=== PATIENT | male | born 1925 | race Caucasian/White ===

== ENCOUNTER 2016-08-06 19:54 | Emergency (ER) | payer OTHER, MEDICAID ==
[~2016-08-06] VITALS: Ht 170.2 cm; Wt 70.5 kg
[2016-08-06 20:10] LABS: BASOPHILS % (AUTO) 0.5 % (0.0-2.0); EOSINOPHILS % (AUTO) 0.9 % (1.0-6.0); HEMATOCRIT 43.1 % (41-53); HEMOGLOBIN 14.4 g/dL (13.5-17.5); LYMPHOCYTES # (AUTO) 1.4 K/uL (1.0-4.8); LYMPHOCYTES % (AUTO) 19.3 % (22.0-44.0); MEAN CORPUSCULAR HEMOGLOBIN 32.2 pg (26.0-34.0); MEAN CORPUSCULAR HGB CONC 33.4 G/dL (31.0-37.0); MEAN CORPUSCULAR VOLUME 97 fL (80-100); NEUTROPHILS # (AUTO) 4.8 K/uL (1.8-7.7); NEUTROPHILS % (AUTO) 65.3 % (40.0-70.0); PLATELET COUNT (AUTO) 158 K/uL (150-450); RED BLOOD CELL COUNT(AUTO) 4.46 MIL/uL (4.50-5.90); RED CELL DISTRIBUTION WIDTH 13.8 % (11.5-14.5); WHITE BLOOD COUNT (AUTO) 7.3 K/uL (4.5-11.0)
[2016-08-06 20:19] LABS: ANION GAP 10 mmol/L (8-16); CALCIUM, TOTAL 8.4 mg/dL (8.8-10.5); CARBON DIOXIDE 26 mmol/L (22-29); CHLORIDE 101 mmol/L (98-107); CREATININE 1.06 mg/dL (0.60-1.30); GLOMERULAR FILTR. RATE CALC > 60 mL/min (>60); POTASSIUM 4.4 mmol/L (3.5-5.1); SODIUM SERUM 137 mmol/L (136-145); UREA NITROGEN, BLOOD 16 mg/dL (7-18)
[2016-08-06] MEDS ORDERED: LISI-661 PO (20:24)
[2016-08-06] MEDS ORDERED: TRAM50TA4 PO (20:24)
[2016-08-06] MEDS ORDERED: ATOR10TA84 PO (20:24)
[2016-08-06] MEDS ORDERED: DIVA250T25 PO (20:24)
[2016-08-06] MEDS ORDERED: DONE10TA PO (20:24)
[2016-08-06] MEDS ORDERED: QUET25TA PO (20:24)
[2016-08-06] MEDS ORDERED: FURO20 PO (20:24)
[2016-08-06] MEDS ORDERED: ASPI81 PO (20:24)
[2016-08-06 20:25] LABS: ALANINE AMINOTRANSFERASE 16 U/L (12-78); ALBUMIN 3.7 g/dL (3.4-5.0); ASPARTATE AMINOTRANSFERASE 15 U/L (15-37); BILIRUBIN,TOTAL 0.6 mg/dL (0.1-1.0); TOTAL PROTEIN, SERUM 7.4 g/dL (6.4-8.2)
[2016-08-06 21:50] LABS: APPEARANCE,URINE CLEAR (CLEAR); GLUCOSE, URINE (UA) NEGATIVE (NEGATIVE); KETONES,URINE NEGATIVE (NEGATIVE); LEUKOCYTE ESTERASE ,URINE TRACE (NEGATIVE); OCCULT BLOOD,URINE SMALL (NEGATIVE); PROTEIN,URINE NEGATIVE (NEGATIVE)
[2016-08-06 21:54] LABS: ADD UA MICROSCOPIC YES
[2016-08-06 22:02] LABS: VALPROIC ACID 19 mcg/mL (50-100)
[2016-08-06 22:21] LABS: SQUAMOUS EPITHELIAL CELL,UR Few /LPF (None Seen)
[2016-08-07 03:10] VITALS: BP 143/72
== END 2016-08-07 04:47 | disposition short-term general hospital (02) ==
LOC: EEVIPCON 19:56 → EMS 19:56
DX: F03.90 Unspecified dementia, unspecified severity, without behavioral disturbance, psychotic disturbance, mood disturbance, and anxiety (principal); F79 Unspecified intellectual disabilities; E78.00 Pure hypercholesterolemia, unspecified; Z79.82 Long term (current) use of aspirin
CPT/HCPCS: 36415; 80053; 80164; 80307; 81001; 85025; 87086; 99284; G0480; 99285